=== PATIENT | female | born 1955 | race Caucasian/White ===

== ENCOUNTER → 2018-05-17 | Outpatient (CLI) | payer OTHER ==
[2018-05-17 13:40] LABS: BASOPHILS ABSOLUTE AUTO 0.07 K/mm3 (0.00-0.23); BASOPHILS PERCENT AUTO 1 % (0-2); EOSINOPHILS PERCENT AUTO 2 % (0-6); Hematocrit 43.5 % (33.0-51.0); Hemoglobin 14.6 g/dL (11.5-16.0); IMMATURE GRAN ABSOLUTE AUTO 0.01 K/mm3 (0.00-0.10); IMMATURE GRAN PERCENT AUTO 0 % (0-1); LYMPHOCYTES ABSOLUTE AUTO 1.62 K/mm3 (0.84-5.20); LYMPHOCYTES PERCENT AUTO 29 % (21-46); MONOCYTES ABSOLUTE AUTO 0.59 K/mm3 (0.16-1.47); MONOCYTES PERCENT AUTO 10 % (4-13); Mean Corpuscular HGB 33.4 pg (26.0-34.0); Mean Corpuscular HGB Conc 33.6 g/dL (31.5-36.5); Mean Corpuscular Volume 100 fL (80-100); Mean Platelet Volume 10.8 fL (9.1-12.4); NEUTROPHILS ABSOLUTE AUTO 3.26 K/mm3 (1.96-9.15); NEUTROPHILS PERCENT AUTO 58 % (41-73); Platelet Count 282 K/mm3 (150-400); RDW Coefficient Variation 11.9 % (11.7-14.2); RDW Standard Deviation 43.1 fL (35.1-46.3); Red Blood Cell Count 4.37 M/mm3 (3.80-5.20); White Blood Cell Count 5.65 K/mm3 (4.00-11.30)
[2018-05-17 13:57] LABS: Alanine Aminotransfer (ALT/SGP 26 U/L (12-78); Albumin/Globulin Ratio 1.3 (0.8-1.8); Alk Phos 72 U/L (50-136); Anion Gap 4 mmol/L (6-16); Aspartate Aminotrans (AST/SGOT 16 U/L (12-37); Bilirubin, Total 0.4 mg/dL (0.1-1.0); Blood Urea Nitrogen 12 mg/dL (8-24); Bun/Creatinine Ratio 16.7 (12.0-20.0); CHOL/HDL RATIO 2.1; CO2, Blood 29 mmol/L (21-32); Calcium, Blood 8.9 mg/dL (8.5-10.1); Chloride, Blood 107 mmol/L (98-108); Cholesterol 175 mg/dL (50-200); Creatinine, Blood 0.72 mg/dL (0.40-1.00); Glomerular Filtration Rate >60 (60-); Glucose, Blood 98 mg/dL (70-99); HDL Cholesterol 84 mg/dL (>39); LDL/HDL RATIO 0.9; Low Density Lipoprotein Chol 77 mg/dL (0-110); Potassium, Blood 4.4 mmol/L (3.5-5.5); Sodium, Blood 140 mmol/L (136-145); Triglycerides 69 mg/dL (30-160); Very Low Density Lipoprot Chol 13 mg/dL (6-32)
== END | disposition home or self-care (01) ==
LOC: LAB 13:21 → LAB SHORT 13:21
PROVIDERS: Hospitalist
DX: Z00.00 Encounter for general adult medical examination without abnormal findings (principal); Z12.4 Encounter for screening for malignant neoplasm of cervix
CPT/HCPCS: 80053; 80061; 85025

== ENCOUNTER 2018-09-07 07:49 | Day surgery (SDC) | payer BC | END 2018-09-07 22:42 | disposition home or self-care (01) | LOC: MOI US 07:49 | PROC: BH01ZZZ Plain Radiography of Left Breast (ICD-10-PCS; principal; 2018-09-07) | DX: C50.912 Malignant neoplasm of unspecified site of left female breast (principal); D05.12 Intraductal carcinoma in situ of left breast | CPT/HCPCS: 19281 ==

== ENCOUNTER 2018-09-10 10:21 | Day surgery (SDC) | payer BC ==
[~2018-09-10] VITALS: Ht 152.4 cm; Wt 59.0 kg
--- NOTE | 2018-09-10 12:03 | NUR ---
PT ADMITTED TO [facility]. AGREES WITH PLANNED SURGER. LUNG SOUNDS CLEAR. PT ANXIOUS AND TEARFULL AT TIMES.
--- NOTE | 2018-09-10 12:55 | NUR ---
REPORT GIVEN TO MARYAM BAUMANN RN.
--- NOTE | 2018-09-10 16:37 | NUR ---
INTO STEP VIA BILL S/P LEFT PARTIAL MASTECTOMY WITH PIPER COTTON TIPPER GUIDED SENTINEL LYMPH NODE BIOPSY. LEFT CHEST DRESSING C/D/I. BREAST BINDER IN PLACE. PT DENIES PAIN OR NAUSEA. GIVEN ORANGE JUICE PER PT REQUEST. VS WDL.
--- NOTE | 2018-09-10 16:48 | NUR ---
PT REPORTS 5/10 LEFT BREAST/INCISIONAL PAIN. MED WITH NORCO 5/325 MG 1 TAB PO-SEE EMAR. ICE APPLIED LEFT CHEST.
--- NOTE | 2018-09-10 17:35 | NUR ---
Patient up to Ambulate independently. Gait steady. Dressing to procedure site clean, dry, intact with no visible drainage, swelling, erythema or bruising noted. Discharge instructions reviewed with patient. Patient verbalizes understanding. Copy given to patient to take home. Discharged via wheelchair to private car for ride home.
--- NOTE | 2018-09-11 13:27 | NUR ---
09/11/18 1327 Afia Pacheco VERIFICATIONS, AUDITS. CONFIRMED COUNTS WITH ROSE MARY PATE WHO DID FINAL COUNT WITH [facility]
== END 2018-09-10 17:35 | disposition home or self-care (01) ==
LOC: ORSCMMR 10:21 → RAD 10:21 → ORSCMMR 10:22 → RAD 11:00
PROVIDERS: Surgery
PROC: 0HBU0ZZ Excision of Left Breast, Open Approach (ICD-10-PCS; principal; 2018-09-10 12:30)
PROC: 07T60ZZ Resection of Left Axillary Lymphatic, Open Approach (ICD-10-PCS; principal; 2018-09-10 12:30)
DX: D05.12 Intraductal carcinoma in situ of left breast (principal); Z17.1 Estrogen receptor negative status [ER-]; D36.0 Benign neoplasm of lymph nodes
CPT/HCPCS: 38792; 76098; 88305; 88307; 88341; 88342; 88360; A9270-GY; A9520; J0690; J1100; J2250; J2405; J2704; J3010; J7120; Q9968

== ENCOUNTER → 2021-09-28 | Outpatient (CLI) | payer BC, OTHER | END | disposition home or self-care (01) | LOC: LAB SHORT 16:10 → LAB 16:10 | DX: R30.0 Dysuria (principal) | CPT/HCPCS: 87086 ==